=== PATIENT | male | born 1970 | race Caucasian/White ===

== ENCOUNTER 2016-11-26 15:57 | Inpatient (IN) | payer OTHER ==
[2016-11-26 17:07] VITALS: BMI 27.9
--- NOTE | 2016-11-26 17:43 | HP ---
CIWA Score - CIWA Score Nausea/Vomitin Muscle Tremors: 3 Anxiety: 3 Agitation: 3 Paroxysmal Sweats: 2 Orientation: 1-Uncertain about Date Tacttile Disturbances: 2-Mild Itch/Numbness/Burn Auditory Disturbances: 2-Mild Harshness/Frighten Visual Disturbances: 2-Mild Sensitivity Headache: 2-Mild CIWA-Ar Total Score: 23 Admission ROS BHS - HPI Chief Complaint: I NEED HELP TO STOP DRINKING ALCOHOL,COCAINE,MARIJUANA,WITHDRAWAL SYMPTOM,LAST DETOX 2015 ARMS AND ACRES METHADONE MAINTENANCE LAST MEDICATED 10/26/16 BIPOLAR DISORDER ASTHMA WEIGHT LOSS LONGEST PERIOD OF SOBRIETY 3 YEARS Allergies/Adverse Reactions: Allergies Allergy/AdvReac Type Severity Reaction Status Date / Time No Known Allergies Allergy Verified 11/26/16 17:35 History of Present Illness: THIS 46 YEARS OLD MALE WITH ALCOHOL,COCAINE,MARIJUANA DEPENDENCE,WITHDRAWAL SYMPTOM,MMTP 130 MGS/DAY,LAST MEDICATED TODAY FOR DETOX Exam Limitations: No Limitations - Ebola screening Have you traveled outside of the country in the last 21 days: No Have you had contact with anyone from an Ebola affected area: No Have you been sick,other than usual withdrawal symptoms: No - Review of Systems Constitutional: Loss of Appetite, Malaise, Night Sweats, Changes in sleep, Weakness, Unintentional Wgt. Loss EENT: reports: Nose Congestion Respiratory: reports: Other (ASTHMA) Cardiac: reports: Palpitations GI: reports: Diarrhea, Nausea, Vomiting, Abdominal cramping : reports: No Symptoms Reported Musculoskeletal: reports: No Symptoms Reported, Back Pain, Muscle Pain Integumentary: reports: Dryness Neuro: reports: Headache, Tremors Endocrine: reports: No Symptoms Reported Hematology: reports: No Symptoms Reported Psychiatric: reports: Judgement Intact, Mood/Affect Appropiate, Orientated x3 ( BIPOLAR DISORDER), Anxious Patient History - Patient Medical History Hx Asthma: Yes (ON ALBUTEROL INHALER) Hx Chronic Obstructive Pulmonary Disease (COPD): Yes (ON ALBUTEROL INHALER) Hx Cancer: No Hx Cardiac Disorders: No Hx Congestive Heart Failure: No Hx Hypertension: No Hx Hypercholesterolemia: No Hx Pacemaker: No HX Cerebrovascular Accident: No Hx Seizures: No Hx Dementia: No Hx Diabetes: No Hx Gastrointestinal Disorders: No Hx Liver Disease: Yes (Hepatitis C TREATED) Hx Genitourinary Disorders: No Hx Sexually Transmitted Disorders: No Hx Renal Disease (ESRD): No Hx Thyroid Disease: No Hx Human Immunodeficiency Virus (HIV): No (LAST 06/07 NEGATIVE) Hx Hepatitis C: Yes (TREATED) Hx Depression: Yes Hx Suicide Attempt: Yes (tried to cut his wrist.) Hx Bipolar Disorder: Yes (ON MED) Hx Schizophrenia: No Other Medical History: NO SUIDAL,NO HOMICIDAL - Patient Surgical History Past Surgical History: Yes Hx Orthopedic Surgery: Yes (L arm fx sx and skull fx sx in 2011) Other Surgical History: L knee sx in 2008 Anesthesia Reaction: No - PPD History Previous Implant?: Yes Documented Results: Negative w/o proof Implanted On Prior [facility] Admission?: Yes Date: 03/03/15 PPD to be Administered?: Yes - Smoking Cessation Smoking history: Current every day smoker Have you smoked in the past 12 months: Yes Aproximately how many cigarettes per day: 20 Hx Chewing Tobacco Use: No Initiated information on smoking cessation: Yes 'Breaking Loose' booklet given: 11/26/16 - Substance & Tx. History Hx Alcohol Use: Yes Hx Substance Use: Yes Substance Use Type: Alcohol, Cocaine, Marijuana Hx Substance Use Treatment: Yes (LAST DETOX ARMS AND ACRES IN 2016) - Substances Abused Alcohol Route: Oral Frequency: Daily Amount used: 10-12 malt liquor Age of first use: 11 Date of Last Use: 11/26/16 Cocaine Route: Inhalation Frequency: Daily Amount used: $20-40 Age of first use: 18 Date of Last Use: 11/25/16 Marijuana/Hashish Route: Smoking Frequency: Daily Amount used: 2-3 blunts Age of first use: 11 Date of Last Use: 11/26/16 Family Disease History - Family Disease History Family Disease History: Other: Father (ALCOHOL,) Admission Physical Exam BHS - Vital Signs Vital Signs: Vital Signs - 24 hr 11/26/16 17:05 Temperature 96.2 F L Pulse Rate 62 Respiratory 20 Rate Blood Pressure 102/69 - Physical General Appearance: Yes: Moderate Distress, Tremorous, Irritable, Sweating, Anxious HEENTM: Yes: Hearing grossly Normal, VENU, Pharynx Normal Respiratory: Yes: Lungs Clear, Normal Breath Sounds, No Respiratory Distress, Other (ASTHMA) Neck: Yes: Within Normal Limits, Supple, Trachea in good position Breast: Yes: Within Normal Limits Cardiology: Yes: Within Normal Limits, Regular Rhythm, Regular Rate, S1, S2 Abdominal: Yes: Within Normal Limits, Normal Bowel Sounds, Non Tender, Flat, Soft Genitourinary: Yes: Within Normal Limits Back: Yes: Muscle Spasm Musculoskeletal: Yes: Back pain, Muscle Pain Extremities: Yes: Normal Range of Motion, Tremors Neurological: Yes: quantitative analyst developer II-XII NML intact, Fully Oriented, Alert, Motor Strength 5/5 Integumentary: Yes: Dry Lymphatic: Yes: Within Normal Limits - Diagnostic (1) Alcohol dependence with uncomplicated withdrawal Status: Acute (2) Cocaine dependence Status: Acute Qualifiers: Substance use status: uncomplicated Qualified Code(s): F14.20 - Cocaine dependence, uncomplicated (3) Cannabis dependence Status: Acute (4) Depression Status: Chronic (5) Hepatitis C Status: Chronic Qualifiers: Viral hepatitis chronicity: chronic Hepatic coma status: without hepatic coma Qualified Code(s): B18.2 - Chronic viral hepatitis C (6) Methadone maintenance therapy patient Status: Chronic (7) Nicotine dependence Status: Acute Qualifiers: Nicotine product type: cigarettes Substance use status: uncomplicated Qualified Code(s): F17.210 - Nicotine dependence, cigarettes, uncomplicated (8) Post traumatic stress disorder (PTSD) Status: Chronic Cleared for Admission [facility] - Detox or Rehab [facility] Level of Care: Medically Managed Detox Regimen/Protocol: Librium [facility] Breath Alcohol Content Breath Alcohol Content: 0 Urine Drug Screen - Results Drug Screen Negative: No Urine Drug Screen Results: THC-Marijuana, RIMA-Cocaine, OPI-Opiates, MTD- Methadone
[2016-11-26] MEDS ORDERED: hydrOXYzine PAMOATE 50 MG CAPSULE (FP) PO PRN (17:56)
[2016-11-26] MEDS ORDERED: guaiFENesin/D-METHORPHAN HB 10 ML UNIT-DOSE CUPS PO PRN (17:56)
[2016-11-26] MEDS ORDERED: ACETAMINOPHEN 325 MG TABLET (FP) PO PRN (17:56)
[2016-11-26] MEDS ORDERED: MAGNESIUM CITRATE 300 ML BOTTLE PO PRN (17:56)
[2016-11-26] MEDS ORDERED: chlordiazePOXIDE HCL 25 MG CAPSULE PO PRN (17:56)
[2016-11-26] MEDS ORDERED: MENTHOL/PHENOL 1 EACH UD MM PRN (17:56)
[2016-11-26] MEDS ORDERED: P-EPHED 60MG/TRIPROLIDI 2.5MG TABLET PO PRN (17:56)
[2016-11-26] MEDS ORDERED: LOPERAMIDE HCL 2 MG CAPSULE PO PRN (17:56)
[2016-11-26] MEDS ORDERED: MAG HYDROX/AL HYDROX/SIMETH 30 ML UNIT-DOSE CUP PO PRN (17:56)
[2016-11-26] MEDS ORDERED: MAGNESIUM HYDROX 2400MG/30ML ORAL SUSPENSION 30 ML CUP PO PRN (17:56)
[2016-11-26] MEDS ORDERED: ALBUTEROL SO4 6.7 GM HFA INHALER IH PRN (17:59)
[2016-11-26] MEDS ORDERED: chlordiazePOXIDE HCL 25 MG CAPSULE PO ONE (18:30)
[2016-11-26 22:27] LABS: URINE APPEARANCE CLEAR; URINE BILIRUBIN NEGATIVE (NEGATIVE); URINE BLOOD NEGATIVE (NEGATIVE); URINE COLOR AMBER; URINE GLUCOSE (UA) NEGATIVE (NEGATIVE); URINE KETONE NEGATIVE (NEGATIVE); URINE NITRITE NEGATIVE (NEGATIVE); URINE UROBILINOGEN 2.0 E.U/dl E.U./dl (0.2-1.0)
[2016-11-26] MEDS: chlordiazePOXIDE HCL 25 MG CAPSULE PO SCH (22:33)
[2016-11-26] MEDS: THIAMINE HCL 100 MG TABLET (FP) PO SCH (22:33)
[2016-11-26] MEDS: diphenhydrAMINE HCL 50 MG CAPSULE PO PRN (22:34)
[2016-11-26] MEDS: NICOTINE 21 MG/24 HOURS TOPICAL PATCH TD SCH (22:35)
[2016-11-26] MEDS: NICOTINE POLACRILEX 2 MG GUM BC PRN (22:36)
[2016-11-26 22:42] LABS: URINE LEUK ESTERASE TRACE (NEGATIVE); URINE PROTEIN 1+ (NEGATIVE)
[2016-11-26 22:54] LABS: URINE MUCUS RARE; URINE RBC 1 /hpf (0-3); URINE WBC 1 /hpf (3-5)
[2016-11-27] MEDS: chlordiazePOXIDE HCL 25 MG CAPSULE PO SCH ×4 (05:58→22:14)
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
--- NOTE | 2016-11-27 09:19 | EKG ---
Test Reason : Blood Pressure : / mmHG Vent. Rate : 054 BPM Atrial Rate : 054 BPM P-R Int : 192 ms QRS Dur : 092 ms QT Int : 460 ms P-R-T Axes : 064 046 040 degrees QTc Int : 436 ms SINUS BRADYCARDIA INCOMPLETE RBBB Confirmed by TATE MEDEL MD ([id number]) on 11/27/2016 9:19:00 AM Referred By: Ar Parekh Confirmed By:TATE MEDEL MD
[2016-11-27 10:04] LABS: MCH 28.5 pg (25.7-33.7); MEAN CELL VOLUME 86.4 fl (80-96); MEAN PLT VOLUME 8.9 fl (7.5-11.1); PLATELET COUNT 196 K/MM3 (134-434); RDW 13.6 % (11.9-15.9); WHITE BLOOD COUNT 5.2 K/mm3 (4.0-10.0)
[2016-11-27 10:17] LABS: ALBUMIN 3.4 g/dl (3.4-5.0); ANION GAP 8 (8-16); CALCIUM 8.5 mg/dL (8.5-10.1); CO2 28 mmol/L (21-32); GLUCOSE,RANDOM 81 mg/dL (74-106); SGPT/ALT 41 U/L (12-78)
[2016-11-27 10:21] LABS: ALK PHOS 102 U/L (45-117); BILIRUBIN,TOTAL 0.8 mg/dL (0.2-1.0); COCKROFT - GAULT 119.78; CREATININE 0.9 mg/dL (0.7-1.3); SGOT/AST 43 U/L (15-37); TOT PROT 7.4 g/dl (6.4-8.2)
[2016-11-27] MEDS: PRENATAL VITAMINS W/ FOLIC ACID TABLET (FP) PO SCH (10:21)
[2016-11-27] MEDS: NICOTINE 21 MG/24 HOURS TOPICAL PATCH TD SCH (10:22)
[2016-11-27] MEDS: PARoxetine HCL 20 MG TABLET (FP) PO SCH (10:22)
--- NOTE | 2016-11-27 10:56 | PN ---
S CIWA - CIWA Score Nausea/Vomitin-No Nausea/No Vomiting Muscle Tremors: 4-Moderate,w/Arms Extend Anxiety: 4-Mod. Anxious/Guarded Agitation: 3 Paroxysmal Sweats: 3 Orientation: 0-Oriented Tacttile Disturbances: 0-None Auditory Disturbances: 0-None Visual Disturbances: 0-None Headache: 0-None Present CIWA-Ar Total Score: 14 BHS Progress Note (SOAP) Subjective: Anxiety,tremors,sweating,restless,interrupted sleep Objective: 11/27/16 10:53 Vital Signs - 8 hr 11/27/16 11/27/16 11/27/16 03:36 07:09 10:51 Temperature 96 F L 96 F L Pulse Rate 50 L 50 L Respiratory 18 18 20 Rate Blood Pressure 118/66 108/67 Laboratory Tests 11/26/16 11/27/16 11/27/16 22:04 07:00 07:00 WBC 5.2 D RBC 5.03 Hgb 14.3 Hct 43.4 MCV 86.4 MCHC 33.0 RDW 13.6 Plt Count 196 MPV 8.9 Sodium 140 Potassium 4.1 Chloride 104 Carbon Dioxide 28 Anion Gap 8 BUN 15 Creatinine 0.9 Creat Clearance w eGFR > 60 Random Glucose 81 D Calcium 8.5 Total Bilirubin 0.8 AST 43 H ALT 41 D Alkaline Phosphatase 102 D Total Protein 7.4 Albumin 3.4 Urine Color Nini Urine Appearance Clear Urine pH 5.0 Ur Specific [place] 1.026 Urine Protein 1+ H Urine Glucose (UA) Negative Urine Ketones Negative Urine Blood Negative Urine Nitrite Negative Urine Bilirubin Negative Urine Urobilinogen 2.0 e.u/dl Ur Leukocyte Esterase Trace H Urine RBC 1 Urine WBC 1 Urine Mucus Rare labs noted Assessment: 11/27/16 10:54 Withdrawal sx Plan: Continue detox
[2016-11-27] MEDS ORDERED: METHADONE HCL 10 MG TABLET PO SCH (11:00)
[2016-11-27 11:10] LABS: HIV 1 & 2 AB NEGATIVE; HIV 1 AGp24 NEGATIVE
[2016-11-27] MEDS ORDERED: METHADONE HCL 10 MG TABLET ONE (11:15)
[2016-11-27] MEDS ORDERED: METHADONE HCL 40 MG DISPERSABLE TABLET ONE (11:16)
[2016-11-27] MEDS: METHADONE 120 MG, METHADONE 10 MG PO SCH (11:19)
[2016-11-27] MEDS: IBUPROFEN 400 MG TABLET (FP) PO PRN (18:07)
[2016-11-27] MEDS: NICOTINE POLACRILEX 2 MG GUM BC PRN (18:08)
[2016-11-27] MEDS: risperiDONE 3 MG TABLET PO SCH (22:14)
[2016-11-27] MEDS: THIAMINE HCL 100 MG TABLET (FP) PO SCH (22:14)
[2016-11-28] MEDS ORDERED: METHADONE HCL 10 MG TABLET ONE (04:14)
[2016-11-28] MEDS ORDERED: METHADONE HCL 40 MG DISPERSABLE TABLET ONE (04:15)
[2016-11-28] MEDS: chlordiazePOXIDE HCL 25 MG CAPSULE PO SCH ×3 (05:28→17:40)
[2016-11-28] MEDS: METHADONE 120 MG, METHADONE 10 MG PO SCH (05:28)
[2016-11-28] MEDS: PRENATAL VITAMINS W/ FOLIC ACID TABLET (FP) PO SCH (10:25)
[2016-11-28] MEDS: PARoxetine HCL 20 MG TABLET (FP) PO SCH (10:25)
[2016-11-28] MEDS: NICOTINE 21 MG/24 HOURS TOPICAL PATCH TD SCH (10:26)
--- NOTE | 2016-11-28 10:46 | PN ---
S CIWA - CIWA Score Nausea/Vomitin-No Nausea/No Vomiting Muscle Tremors: 4-Moderate,w/Arms Extend Anxiety: 4-Mod. Anxious/Guarded Agitation: 3 Paroxysmal Sweats: 3 Orientation: 0-Oriented Tacttile Disturbances: 0-None Auditory Disturbances: 0-None Visual Disturbances: 0-None Headache: 0-None Present CIWA-Ar Total Score: 14 BHS Progress Note (SOAP) Subjective: Anxiety,tremors,sweating,interrupted sleep,restless Objective: 11/28/16 10:44 Vital Signs - 8 hr 11/28/16 11/28/16 11/28/16 03:30 06:42 09:43 Temperature 96.9 F L 97.7 F Pulse Rate 48 L 55 L Respiratory 18 16 18 Rate Blood Pressure 110/83 106/73 Laboratory Tests 11/26/16 11/27/16 11/27/16 22:04 07:00 07:00 WBC 5.2 D RBC 5.03 Hgb 14.3 Hct 43.4 MCV 86.4 MCHC 33.0 RDW 13.6 Plt Count 196 MPV 8.9 Sodium Potassium Chloride Carbon Dioxide Anion Gap BUN Creatinine Creat Clearance w eGFR Random Glucose Calcium Total Bilirubin AST ALT Alkaline Phosphatase Total Protein Albumin Urine Color Nini Urine Appearance Clear Urine pH 5.0 Ur Specific [place] 1.026 Urine Protein 1+ H Urine Glucose (UA) Negative Urine Ketones Negative Urine Blood Negative Urine Nitrite Negative Urine Bilirubin Negative Urine Urobilinogen 2.0 e.u/dl Ur Leukocyte Esterase Trace H Urine RBC 1 Urine WBC 1 Urine Mucus Rare RPR Titer HIV 1&2 Antibody Screen Negative HIV P24 Antigen Negative 11/27/16 11/27/16 07:00 07:00 WBC RBC Hgb Hct MCV MCHC RDW Plt Count MPV Sodium 140 Potassium 4.1 Chloride 104 Carbon Dioxide 28 Anion Gap 8 BUN 15 Creatinine 0.9 Creat Clearance w eGFR > 60 Random Glucose 81 D Calcium 8.5 Total Bilirubin 0.8 AST 43 H ALT 41 D Alkaline Phosphatase 102 D Total Protein 7.4 Albumin 3.4 Urine Color Urine Appearance Urine pH Ur Specific [place] Urine Protein Urine Glucose (UA) Urine Ketones Urine Blood Urine Nitrite Urine Bilirubin Urine Urobilinogen Ur Leukocyte Esterase Urine RBC Urine WBC Urine Mucus RPR Titer Nonreactive HIV 1&2 Antibody Screen HIV P24 Antigen labs noted Assessment: 11/28/16 10:45 Withdrawal sx. Plan: Continue detox
[2016-11-28] MEDS: IBUPROFEN 400 MG TABLET (FP) PO PRN (21:07)
[2016-11-28] MEDS: chlordiazePOXIDE 5 MG CAPSULE PO SCH (22:25)
[2016-11-28] MEDS: THIAMINE HCL 100 MG TABLET (FP) PO SCH (22:25)
[2016-11-28] MEDS: risperiDONE 3 MG TABLET PO SCH (22:25)
[2016-11-28] MEDS: diphenhydrAMINE HCL 50 MG CAPSULE PO PRN (22:25)
[2016-11-29] MEDS ORDERED: METHADONE HCL 10 MG TABLET ONE (01:44)
[2016-11-29] MEDS ORDERED: METHADONE HCL 40 MG DISPERSABLE TABLET ONE (01:45)
[2016-11-29] MEDS: chlordiazePOXIDE 5 MG CAPSULE PO SCH ×3 (05:56→17:03)
[2016-11-29] MEDS: METHADONE 120 MG, METHADONE 10 MG PO SCH (05:56)
[2016-11-29] MEDS: NICOTINE 21 MG/24 HOURS TOPICAL PATCH TD SCH (10:14)
[2016-11-29] MEDS: PARoxetine HCL 20 MG TABLET (FP) PO SCH (10:16)
[2016-11-29] MEDS: PRENATAL VITAMINS W/ FOLIC ACID TABLET (FP) PO SCH (10:16)
--- NOTE | 2016-11-29 12:43 | PN ---
BHS Progress Note (SOAP) Subjective: Sweating,interrupted sleep,restless Objective: 11/29/16 12:42 Vital Signs - 8 hr 11/29/16 11/29/16 06:45 09:30 Temperature 96.1 F L 96.3 F L Pulse Rate 60 62 Respiratory 18 18 Rate Blood Pressure 125/84 131/83 Laboratory Tests 11/26/16 11/27/16 11/27/16 22:04 07:00 07:00 WBC 5.2 D RBC 5.03 Hgb 14.3 Hct 43.4 MCV 86.4 MCHC 33.0 RDW 13.6 Plt Count 196 MPV 8.9 Sodium Potassium Chloride Carbon Dioxide Anion Gap BUN Creatinine Creat Clearance w eGFR Random Glucose Calcium Total Bilirubin AST ALT Alkaline Phosphatase Total Protein Albumin Urine Color Nini Urine Appearance Clear Urine pH 5.0 Ur Specific [place] 1.026 Urine Protein 1+ H Urine Glucose (UA) Negative Urine Ketones Negative Urine Blood Negative Urine Nitrite Negative Urine Bilirubin Negative Urine Urobilinogen 2.0 e.u/dl Ur Leukocyte Esterase Trace H Urine RBC 1 Urine WBC 1 Urine Mucus Rare RPR Titer HIV 1&2 Antibody Screen Negative HIV P24 Antigen Negative 11/27/16 11/27/16 07:00 07:00 WBC RBC Hgb Hct MCV MCHC RDW Plt Count MPV Sodium 140 Potassium 4.1 Chloride 104 Carbon Dioxide 28 Anion Gap 8 BUN 15 Creatinine 0.9 Creat Clearance w eGFR > 60 Random Glucose 81 D Calcium 8.5 Total Bilirubin 0.8 AST 43 H ALT 41 D Alkaline Phosphatase 102 D Total Protein 7.4 Albumin 3.4 Urine Color Urine Appearance Urine pH Ur Specific [place] Urine Protein Urine Glucose (UA) Urine Ketones Urine Blood Urine Nitrite Urine Bilirubin Urine Urobilinogen Ur Leukocyte Esterase Urine RBC Urine WBC Urine Mucus RPR Titer Nonreactive HIV 1&2 Antibody Screen HIV P24 Antigen labs noted Assessment: 11/29/16 12:42 Withdrawal sx. Plan: continue detox
[2016-11-29] MEDS: risperiDONE 3 MG TABLET PO SCH (22:07)
[2016-11-29] MEDS: IBUPROFEN 400 MG TABLET (FP) PO PRN (22:07)
[2016-11-29] MEDS: chlordiazePOXIDE HCL 10 MG CAPSULE PO SCH (22:07)
[2016-11-29] MEDS: diphenhydrAMINE HCL 50 MG CAPSULE PO PRN (22:07)
[2016-11-29] MEDS: THIAMINE HCL 100 MG TABLET (FP) PO SCH (22:07)
[2016-11-30] MEDS ORDERED: METHADONE HCL 40 MG DISPERSABLE TABLET ONE (03:27)
[2016-11-30] MEDS ORDERED: METHADONE HCL 10 MG TABLET ONE (03:27)
[2016-11-30] MEDS: IBUPROFEN 400 MG TABLET (FP) PO PRN (06:05)
[2016-11-30] MEDS: chlordiazePOXIDE HCL 10 MG CAPSULE PO SCH (06:05)
[2016-11-30] MEDS: METHADONE 120 MG, METHADONE 10 MG PO SCH (06:06)
[2016-11-30 07:01] VITALS: BP 129/72; PULSE 63; TEMP 96.9
--- NOTE | 2016-11-30 10:11 | DS ---
[facility] Detox Discharge Summary Admission Date: 11/26/16 Discharge Date: 11/30/16 - History Present History: Alcohol Dependence, Cocaine Dependence, MMTP Pertinent Past History: Hep C - Physical Exam Results Vital Signs: Vital Signs Temperature 96.9 F L 11/30/16 06:59 Pulse Rate 63 11/30/16 06:59 Respiratory Rate 18 11/30/16 06:59 Blood Pressure 129/72 11/30/16 06:59 O2 Sat by Pulse Oximetry (%) Pertinent Admission Physical Exam Findings: Withdrawal sx. Laboratory Last Values WBC 5.2 K/mm3 (4.0-10.0) D 11/27/16 07:00 RBC 5.03 M/mm3 (4.00-5.60) 11/27/16 07:00 Hgb 14.3 GM/dL (11.7-16.9) 11/27/16 07:00 Hct 43.4 % (35.4-49) 11/27/16 07:00 MCV 86.4 fl (80-96) 11/27/16 07:00 MCHC 33.0 g/dl (32.0-35.9) 11/27/16 07:00 RDW 13.6 % (11.9-15.9) 11/27/16 07:00 Plt Count 196 K/MM3 (134-434) 11/27/16 07:00 MPV 8.9 fl (7.5-11.1) 11/27/16 07:00 Sodium 140 mmol/L (136-145) 11/27/16 07:00 Potassium 4.1 mmol/L (3.5-5.1) 11/27/16 07:00 Chloride 104 mmol/L (98-107) 11/27/16 07:00 Carbon Dioxide 28 mmol/L (21-32) 11/27/16 07:00 Anion Gap 8 (8-16) 11/27/16 07:00 BUN 15 mg/dL (7-18) 11/27/16 07:00 Creatinine 0.9 mg/dL (0.7-1.3) 11/27/16 07:00 Creat Clearance w eGFR > 60 (>60) 11/27/16 07:00 Random Glucose 81 mg/dL (74-106) D 11/27/16 07:00 Calcium 8.5 mg/dL (8.5-10.1) 11/27/16 07:00 Total Bilirubin 0.8 mg/dL (0.2-1.0) 11/27/16 07:00 AST 43 U/L (15-37) H 11/27/16 07:00 ALT 41 U/L (12-78) D 11/27/16 07:00 Alkaline Phosphatase 102 U/L (45-117) D 11/27/16 07:00 Total Protein 7.4 g/dl (6.4-8.2) 11/27/16 07:00 Albumin 3.4 g/dl (3.4-5.0) 11/27/16 07:00 Urine Color Nini 11/26/16 22:04 Urine Appearance Clear 11/26/16 22:04 Urine pH 5.0 (5.0-8.0) 11/26/16 22:04 Ur Specific [place] 1.026 (1.001-1.035) 11/26/16 22:04 Urine Protein 1+ (NEGATIVE) H 11/26/16 22:04 Urine Glucose (UA) Negative (NEGATIVE) 11/26/16 22:04 Urine Ketones Negative (NEGATIVE) 11/26/16 22:04 Urine Blood Negative (NEGATIVE) 11/26/16 22:04 Urine Nitrite Negative (NEGATIVE) 11/26/16 22:04 Urine Bilirubin Negative (NEGATIVE) 11/26/16 22:04 Urine Urobilinogen 2.0 e.u/dl E.U./dl (0.2-1.0) 11/26/16 22:04 Ur Leukocyte Esterase Trace (NEGATIVE) H 11/26/16 22:04 Urine RBC 1 /hpf (0-3) 11/26/16 22:04 Urine WBC 1 /hpf (3-5) 11/26/16 22:04 Urine Mucus Rare 11/26/16 22:04 RPR Titer Nonreactive (NONREACTIVE) 11/27/16 07:00 HIV 1&2 Antibody Screen Negative 11/27/16 07:00 HIV P24 Antigen Negative 11/27/16 07:00 labs noted - Treatment Hospital Course: Detox Protocol Followed, Detoxed Safely, Responded well, Discharged Condition Good, Rehab Referral Accepted Patient has Accepted a Rehab Referral to: [facility] - Medication Discharge Medications: Ambulatory Orders Paroxetine HCl [Paxil] 20 mg PO DAILY #0 03/06/15 Albuterol Sulfate Inhaler - [Ventolin Hfa Inhaler -] 2 inh PO Q4H PRN 11/26/16 Clonazepam [Klonopin -] 2 mg PO BID 11/26/16 Risperidone [Risperdal -] 3 mg PO HS 11/26/16 Paroxetine HCl [Paxil -] 20 mg PO DAILY #30 tablet 11/27/16 Risperidone [Risperdal] 3 mg PO HS #30 tablet 11/27/16 - Diagnosis (1) Alcohol dependence with uncomplicated withdrawal Status: Acute (2) COPD (chronic obstructive pulmonary disease) Status: Acute (3) Cannabis dependence Status: Acute (4) Cocaine dependence Status: Acute Qualifiers: Substance use status: uncomplicated Qualified Code(s): F14.20 - Cocaine dependence, uncomplicated (5) Nicotine dependence Status: Acute Qualifiers: Nicotine product type: cigarettes Substance use status: uncomplicated Qualified Code(s): F17.210 - Nicotine dependence, cigarettes, uncomplicated (6) Opioid dependence on agonist therapy Status: Acute (7) Hepatitis C Status: Chronic Qualifiers: Viral hepatitis chronicity: chronic Hepatic coma status: without hepatic coma Qualified Code(s): B18.2 - Chronic viral hepatitis C (8) Bipolar disorder Status: Chronic (9) Post traumatic stress disorder (PTSD) Status: Chronic - AMA Did Patient Leave Against Medical Advice: No
== END 2016-11-30 09:48 | disposition home or self-care (01) | DRG 773 ==
LOC: YASAS 15:57 → Y3N 18:03
PROVIDERS: ADMIT Internal Medicine; ATTEND Internal Medicine
PROC: HZ2ZZZZ Detoxification Services for Substance Abuse Treatment (ICD-10-PCS; principal; 2016-11-30)
DX: F11.20 Opioid dependence, uncomplicated (principal); F10.230 Alcohol dependence with withdrawal, uncomplicated; F14.20 Cocaine dependence, uncomplicated; F12.20 Cannabis dependence, uncomplicated; F17.210 Nicotine dependence, cigarettes, uncomplicated; F43.10 Post-traumatic stress disorder, unspecified; F32.9 Major depressive disorder, single episode, unspecified; B18.2 Chronic viral hepatitis C; J44.9 Chronic obstructive pulmonary disease, unspecified; Z59.0 Homelessness
CPT/HCPCS: 36415; 80053; 81003; 81015; 85027; 86593; 87389; 93005; 93010

== ENCOUNTER 2017-06-29 11:42 | Inpatient (IN) | payer OTHER ==
[2017-06-29 12:50] VITALS: BMI 31.9
[2017-06-29] MEDS ORDERED: ACETAMINOPHEN 325 MG TABLET (FP) PO PRN (16:29)
[2017-06-29] MEDS ORDERED: LOPERAMIDE HCL 2 MG CAPSULE PO PRN (16:29)
[2017-06-29] MEDS ORDERED: MAGNESIUM HYDROX 2400MG/30ML ORAL SUSPENSION 30 ML CUP PO PRN (16:29)
[2017-06-29] MEDS ORDERED: guaiFENesin/D-METHORPHAN HB 10 ML UNIT-DOSE CUPS PO PRN (16:29)
[2017-06-29] MEDS ORDERED: NICOTINE POLACRILEX 2 MG GUM BC PRN (16:29)
[2017-06-29] MEDS ORDERED: chlordiazePOXIDE HCL 25 MG CAPSULE PO PRN (16:29)
[2017-06-29] MEDS ORDERED: MENTHOL/PHENOL 1 EACH UD MM PRN (16:29)
[2017-06-29] MEDS ORDERED: MAGNESIUM CITRATE 300 ML BOTTLE PO PRN (16:29)
[2017-06-29] MEDS ORDERED: IBUPROFEN 400 MG TABLET (FP) PO PRN (16:29)
[2017-06-29] MEDS ORDERED: P-EPHED 60MG/TRIPROLIDI 2.5MG TABLET PO PRN (16:29)
[2017-06-29] MEDS ORDERED: MAG HYDROX/AL HYDROX/SIMETH 30 ML UNIT-DOSE CUP PO PRN (16:29)
[2017-06-29] MEDS ORDERED: METHADONE HCL 40 MG DISPERSABLE TABLET PO SCH (16:30)
--- NOTE | 2017-06-29 16:32 | HP ---
CIWA Score - CIWA Score Nausea/Vomitin Muscle Tremors: 4-Moderate,w/Arms Extend Anxiety: 3 Agitation: 4-Moderately Restless Paroxysmal Sweats: 3 Orientation: 0-Oriented Tacttile Disturbances: 0-None Auditory Disturbances: 0-None Visual Disturbances: 0-None Headache: 2-Mild CIWA-Ar Total Score: 19 Admission ROS BHS - HPI Chief Complaint: alcohol withdrawal sx Allergies/Adverse Reactions: Allergies Allergy/AdvReac Type Severity Reaction Status Date / Time No Known Allergies Allergy Verified 06/29/17 13:54 History of Present Illness: 46 yo m with h/o opioid dependence on MMTP 150mg daily, LDM yesterday 150mg verified by nurse, has not been medicated today admitted for alcohol detoxification. smokes marijuana and uses cocaine, reprots [place] when he does nto drink PMHX hep c, nictoien depdnence, bipolar do, asthma, denies seizures or DTS, no suicidal ideation at this time Exam Limitations: No Limitations - Ebola screening Have you traveled outside of the country in the last 21 days: No Have you had contact with anyone from an Ebola affected area: No Have you been sick,other than usual withdrawal symptoms: No Do you have a fever: No - Review of Systems Constitutional: Diaphoresis, Changes in sleep, Weight Stable EENT: reports: No Symptoms Reported Respiratory: reports: No Symptoms reported Cardiac: reports: No Symptoms Reported GI: reports: Diarrhea, Nausea, Poor Appetite, Poor Fluid Intake, Vomiting, Indigestion, Abdominal cramping : reports: No Symptoms Reported Musculoskeletal: reports: No Symptoms Reported Integumentary: reports: Flushing, Sweating Neuro: reports: Headache, Numbness, Tingling, Tremors, Weakness Endocrine: reports: No Symptoms Reported Hematology: reports: No Symptoms Reported Psychiatric: reports: Judgement Intact, Mood/Affect Appropiate, Orientated x3, Anxious, Depressed Other Systems: Reviewed and Negative Patient History - Patient Medical History Hx Anemia: No Hx Asthma: Yes Hx Chronic Obstructive Pulmonary Disease (COPD): No Hx Cancer: No Hx Cardiac Disorders: No Hx Congestive Heart Failure: No Hx Hypertension: No Hx Hypercholesterolemia: No Hx Pacemaker: No HX Cerebrovascular Accident: No Hx Seizures: No Hx Dementia: No Hx Diabetes: No Hx Gastrointestinal Disorders: No Hx Liver Disease: Yes (Hepatitis C TREATED) Hx Genitourinary Disorders: No Hx Sexually Transmitted Disorders: No Hx Renal Disease (ESRD): No Hx Thyroid Disease: No Hx Human Immunodeficiency Virus (HIV): No (LAST 06/07 NEGATIVE) Hx Hepatitis C: Yes (TREATED) Hx Depression: No Hx Suicide Attempt: No Hx Bipolar Disorder: Yes (ON MED) Hx Schizophrenia: No - Patient Surgical History Past Surgical History: Yes Hx Orthopedic Surgery: Yes (L arm fx sx and skull fx sx in 2011) Other Surgical History: L knee sx in 2008 Anesthesia Reaction: No - PPD History Previous Implant?: Yes Documented Results: Negative w/proof Implanted On Prior [facility] Admission?: Yes Date: 03/03/15 Results: 0mm PPD to be Administered?: Yes - Reproductive History Patient is a Female of Child Bearing Age (11 -55 yrs old): No Patient : No - Smoking Cessation Smoking history: Current every day smoker Have you smoked in the past 12 months: Yes Aproximately how many cigarettes per day: 10 Hx Chewing Tobacco Use: No Initiated information on smoking cessation: Yes 'Breaking Loose' booklet given: 06/29/17 - Substance & Tx. History Hx Alcohol Use: Yes Hx Substance Use: Yes Substance Use Type: Alcohol, Heroin, Opiates, Prescribed Hx Substance Use Treatment: Yes (MMTP, dtox and rehab [facility]) - Substances Abused Alcohol Route: Oral Frequency: Daily Amount used: beer(7-25 oz cans) Age of first use: 11 Date of Last Use: 06/29/17 Cocaine Route: Smoking Frequency: Daily Amount used: $10 Age of first use: 18 Date of Last Use: 06/28/17 Marijuana/Hashish Route: Smoking Frequency: Daily Amount used: $10 Age of first use: 11 Date of Last Use: 06/28/17 Family Disease History - Family Disease History Family Disease History: Other: Father (ALCOHOL,) Admission Physical Exam BHS - Vital Signs Vital Signs: Vital Signs - 24 hr 06/29/17 12:48 Temperature 96.8 F L Pulse Rate 80 Respiratory 18 Rate Blood Pressure 150/90 - Physical General Appearance: Yes: Nourished, Appropriately Dressed, Disheveled, Mild Distress, Tremorous, Irritable, Sweating, Anxious HEENTM: Yes: Within Normal Limits, EOMI, Hearing grossly Normal, Normal ENT Inspection, Normocephalic, Normal Voice, VENU, Pharynx Normal Respiratory: Yes: Within Normal Limits, Chest Non-Tender, Lungs Clear, Normal Breath Sounds, No Respiratory Distress, No Accessory Muscle Use Neck: Yes: Within Normal Limits, No masses,lesions,Nodules, Supple, Trachea in good position Breast: Yes: Breast Exam Deferred Cardiology: Yes: Within Normal Limits, Regular Rhythm, Regular Rate, S1, S2 Abdominal: Yes: Normal Bowel Sounds, Non Tender, Soft, Increased Bowel Sounds, Protuberent Genitourinary: Yes: Within Normal Limits Back: Yes: Within Normal Limits, Normal Inspection Musculoskeletal: Yes: Within Normal Limits, full range of Motion, Gait Steady, Pelvis Stable Extremities: Yes: Normal Capillary Refill, Normal Range of Motion, Non-Tender, Tremors Neurological: Yes: grain broker II-XII NML intact, Fully Oriented, Alert, Motor Strength 5/5, Normal Response, Depressed Affect Integumentary: Yes: Normal Color, Warm, Diaphoresis, Moist Lymphatic: Yes: Within Normal Limits - Addiitonal Findings: withdrawal sx present - Diagnostic (1) Alcohol dependence with uncomplicated withdrawal Current Visit: No Status: Acute (2) COPD (chronic obstructive pulmonary disease) Current Visit: No Status: Acute (3) Cannabis dependence Current Visit: No Status: Acute (4) Cocaine dependence Current Visit: No Status: Acute Qualifiers: Substance use status: uncomplicated Qualified Code(s): F14.20 - Cocaine dependence, uncomplicated; F14.20 - Cocaine dependence, uncomplicated; F14.20 - Cocaine dependence, uncomplicated (5) Nicotine dependence Current Visit: No Status: Acute Qualifiers: Nicotine product type: cigarettes Substance use status: uncomplicated Qualified Code(s): F17.210 - Nicotine dependence, cigarettes, uncomplicated; F17.210 - Nicotine dependence, cigarettes, uncomplicated (6) Bipolar disorder Current Visit: No Status: Chronic (7) Hepatitis C Current Visit: No Status: Chronic Qualifiers: Viral hepatitis chronicity: chronic Hepatic coma status: without hepatic coma Qualified Code(s): B18.2 - Chronic viral hepatitis C; B18.2 - Chronic viral hepatitis C; B18.2 - Chronic viral hepatitis C; B18.2 - Chronic viral hepatitis C Cleared for Admission BHS - Detox or Rehab [facility] Level of Care: Medically Managed Detox Regimen/Protocol: Librium S Breath Alcohol Content Breath Alcohol Content: 0.023 Urine Drug Screen - Results Drug Screen Negative: No Urine Drug Screen Results: THC-Marijuana, RIMA-Cocaine, MTD-Methadone
[2017-06-29] MEDS ORDERED: chlordiazePOXIDE HCL 25 MG CAPSULE PO ONE (17:00)
[2017-06-29] MEDS ORDERED: METHADONE 120 MG, METHADONE 30 MG PO ONE (17:30)
[2017-06-29] MEDS ORDERED: METHADONE HCL 10 MG TABLET ONE (18:10)
[2017-06-29] MEDS ORDERED: METHADONE HCL 40 MG DISPERSABLE TABLET ONE (18:12)
[2017-06-29] MEDS: NICOTINE 14 MG/24 HOURS TOPICAL PATCH TD SCH (18:22)
[2017-06-29] MEDS: ALBUTEROL SO4 18 GM HFA INHALER IH PRN (18:47)
--- NOTE | 2017-06-29 19:14 | EKG ---
Test Reason : Blood Pressure : / mmHG Vent. Rate : 059 BPM Atrial Rate : 059 BPM P-R Int : 186 ms QRS Dur : 082 ms QT Int : 450 ms P-R-T Axes : 064 026 027 degrees QTc Int : 445 ms SINUS BRADYCARDIA RSR' V1 POSSIBLE LEFT ATRIAL ENLARGEMENT BORDERLINE ECG WHEN COMPARED WITH ECG OF 26-NOV-2016 17:50, NO SIGNIFICANT CHANGE WAS FOUND Confirmed by FABRICIO SHAH MD ([id number]) on 06/29/2017 7:14:31 PM Referred By: BRYAN BURNETT Confirmed By:FABRICIO SHAH MD
[2017-06-29] MEDS: THIAMINE HCL 100 MG TABLET (FP) PO SCH (22:33)
[2017-06-29] MEDS: chlordiazePOXIDE HCL 25 MG CAPSULE PO SCH (22:33)
[2017-06-29] MEDS: hydrOXYzine PAMOATE 50 MG CAPSULE (FP) PO PRN (22:35)
[2017-06-30] MEDS ORDERED: METHADONE HCL 10 MG TABLET ONE (05:14)
[2017-06-30] MEDS ORDERED: METHADONE HCL 40 MG DISPERSABLE TABLET ONE (05:15)
[2017-06-30] MEDS: chlordiazePOXIDE HCL 25 MG CAPSULE PO SCH ×4 (05:30→22:28)
[2017-06-30] MEDS: METHADONE 120 MG, METHADONE 30 MG PO SCH (05:30)
[2017-06-30 10:14] LABS: MCH 30.4 pg (25.7-33.7); MCHC 33.4 g/dl (32.0-35.9); MEAN CELL VOLUME 91.1 fl (80-96); MEAN PLT VOLUME 10.4 fl (7.5-11.1); PLATELET COUNT 172 K/MM3 (134-434); RDW 13.2 % (11.9-15.9); WHITE BLOOD COUNT 7.3 K/mm3 (4.0-10.0)
[2017-06-30] MEDS: PRENATAL VITAMINS W/ FOLIC ACID TABLET (FP) PO SCH (10:25)
[2017-06-30] MEDS: NICOTINE 14 MG/24 HOURS TOPICAL PATCH TD SCH (10:26)
[2017-06-30 10:37] LABS: ALBUMIN 3.6 g/dl (3.4-5.0); ALK PHOS 143 U/L (45-117); ANION GAP 8 (8-16); BILIRUBIN,TOTAL 0.4 mg/dL (0.2-1.0); CALCIUM 8.3 mg/dL (8.5-10.1); CO2 27 mmol/L (21-32); CREATININE 0.9 mg/dL (0.7-1.3); GLUCOSE,RANDOM 120 mg/dL (74-106); SGOT/AST 157 U/L (15-37); SGPT/ALT 111 U/L (12-78); TOT PROT 7.7 g/dl (6.4-8.2)
[2017-06-30] MEDS ORDERED: FLU VACCINE QUAD 60 MCG/0.5 ML (MDV 17-18) IM ONE (12:00)
--- NOTE | 2017-06-30 12:28 | PN ---
[facility] CIWA - CIWA Score Nausea/Vomitin-No Nausea/No Vomiting Muscle Tremors: 4-Moderate,w/Arms Extend Anxiety: 4-Mod. Anxious/Guarded Agitation: 4-Moderately Restless Paroxysmal Sweats: 1-Minimal Palms Moist Orientation: 0-Oriented Tacttile Disturbances: 3-Moderate Itch/Numb/Burn Auditory Disturbances: 0-None Visual Disturbances: 0-None Headache: 0-None Present CIWA-Ar Total Score: 16 BHS Progress Note (SOAP) Subjective: ANXIETY,TREMORS, HEADACHE,SWEATS. Objective: 06/30/17 12:27 Vital Signs 06/30/17 09:24 Temperature 96.4 F L Pulse Rate 91 H Respiratory 20 Rate Blood Pressure 138/93 Laboratory Last Values WBC 7.3 K/mm3 (4.0-10.0) D 06/30/17 06:00 RBC 5.18 M/mm3 (4.00-5.60) 06/30/17 06:00 Hgb 15.7 GM/dL (11.7-16.9) 06/30/17 06:00 Hct 47.1 % (35.4-49) 06/30/17 06:00 MCV 91.1 fl (80-96) 06/30/17 06:00 MCH 30.4 pg (25.7-33.7) 06/30/17 06:00 MCHC 33.4 g/dl (32.0-35.9) 06/30/17 06:00 RDW 13.2 % (11.9-15.9) 06/30/17 06:00 Plt Count 172 K/MM3 (134-434) 06/30/17 06:00 MPV 10.4 fl (7.5-11.1) D 06/30/17 06:00 Sodium 139 mmol/L (136-145) 06/30/17 06:00 Potassium 4.3 mmol/L (3.5-5.1) 06/30/17 06:00 Chloride 104 mmol/L (98-107) 06/30/17 06:00 Carbon Dioxide 27 mmol/L (21-32) 06/30/17 06:00 Anion Gap 8 (8-16) 06/30/17 06:00 BUN 19 mg/dL (7-18) H D 06/30/17 06:00 Creatinine 0.9 mg/dL (0.7-1.3) 06/30/17 06:00 Creat Clearance w eGFR > 60 (>60) 06/30/17 06:00 Random Glucose 120 mg/dL (74-106) H D 06/30/17 06:00 Calcium 8.3 mg/dL (8.5-10.1) L 06/30/17 06:00 Total Bilirubin 0.4 mg/dL (0.2-1.0) D 06/30/17 06:00 AST 157 U/L (15-37) H D 06/30/17 06:00 ALT 111 U/L (12-78) H D 06/30/17 06:00 Alkaline Phosphatase 143 U/L (45-117) H D 06/30/17 06:00 Total Protein 7.7 g/dl (6.4-8.2) 06/30/17 06:00 Albumin 3.6 g/dl (3.4-5.0) 06/30/17 06:00 Assessment: 06/30/17 12:28 WITHDRAWAL SX Plan: CONTINUE DETOX
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
[2017-06-30 13:44] LABS: HIV 1 & 2 AB NEGATIVE; HIV 1 AGp24 NEGATIVE
[2017-06-30] MEDS: PARoxetine HCL 20 MG TABLET (FP) PO SCH (14:50)
[2017-06-30] MEDS: risperiDONE 3 MG TABLET PO SCH (22:27)
[2017-06-30] MEDS: THIAMINE HCL 100 MG TABLET (FP) PO SCH (22:27)
[2017-06-30] MEDS: hydrOXYzine PAMOATE 50 MG CAPSULE (FP) PO PRN (22:30)
[2017-07-01] MEDS ORDERED: METHADONE HCL 10 MG TABLET ONE (04:46)
[2017-07-01] MEDS ORDERED: METHADONE HCL 40 MG DISPERSABLE TABLET ONE (04:47)
[2017-07-01] MEDS: METHADONE 120 MG, METHADONE 30 MG PO SCH (05:14)
[2017-07-01] MEDS: chlordiazePOXIDE HCL 25 MG CAPSULE PO SCH ×3 (05:14→17:20)
[2017-07-01] MEDS: NICOTINE 14 MG/24 HOURS TOPICAL PATCH TD SCH (10:36)
[2017-07-01] MEDS: PRENATAL VITAMINS W/ FOLIC ACID TABLET (FP) PO SCH (10:36)
[2017-07-01] MEDS: PARoxetine HCL 20 MG TABLET (FP) PO SCH (10:36)
--- NOTE | 2017-07-01 13:29 | PN ---
[facility] CIWA - CIWA Score Nausea/Vomitin-No Nausea/No Vomiting Muscle Tremors: 4-Moderate,w/Arms Extend Anxiety: 4-Mod. Anxious/Guarded Agitation: 4-Moderately Restless Paroxysmal Sweats: 1-Minimal Palms Moist Orientation: 0-Oriented Tacttile Disturbances: 3-Moderate Itch/Numb/Burn Auditory Disturbances: 0-None Visual Disturbances: 0-None Headache: 0-None Present CIWA-Ar Total Score: 16 BHS Progress Note (SOAP) Subjective: ANXIETY,SWEATS,TREMORS,FATIGUE. Objective: 07/01/17 13:28 Vital Signs Temperature 97.9 F 07/01/17 13:05 Pulse Rate 73 07/01/17 13:05 Respiratory Rate 18 07/01/17 13:05 Blood Pressure 119/86 07/01/17 13:05 O2 Sat by Pulse Oximetry (%) Laboratory Last Values WBC 7.3 K/mm3 (4.0-10.0) D 06/30/17 06:00 RBC 5.18 M/mm3 (4.00-5.60) 06/30/17 06:00 Hgb 15.7 GM/dL (11.7-16.9) 06/30/17 06:00 Hct 47.1 % (35.4-49) 06/30/17 06:00 MCV 91.1 fl (80-96) 06/30/17 06:00 MCH 30.4 pg (25.7-33.7) 06/30/17 06:00 MCHC 33.4 g/dl (32.0-35.9) 06/30/17 06:00 RDW 13.2 % (11.9-15.9) 06/30/17 06:00 Plt Count 172 K/MM3 (134-434) 06/30/17 06:00 MPV 10.4 fl (7.5-11.1) D 06/30/17 06:00 Sodium 139 mmol/L (136-145) 06/30/17 06:00 Potassium 4.3 mmol/L (3.5-5.1) 06/30/17 06:00 Chloride 104 mmol/L (98-107) 06/30/17 06:00 Carbon Dioxide 27 mmol/L (21-32) 06/30/17 06:00 Anion Gap 8 (8-16) 06/30/17 06:00 BUN 19 mg/dL (7-18) H D 06/30/17 06:00 Creatinine 0.9 mg/dL (0.7-1.3) 06/30/17 06:00 Creat Clearance w eGFR > 60 (>60) 06/30/17 06:00 Random Glucose 120 mg/dL (74-106) H D 06/30/17 06:00 Calcium 8.3 mg/dL (8.5-10.1) L 06/30/17 06:00 Total Bilirubin 0.4 mg/dL (0.2-1.0) D 06/30/17 06:00 AST 157 U/L (15-37) H D 06/30/17 06:00 ALT 111 U/L (12-78) H D 06/30/17 06:00 Alkaline Phosphatase 143 U/L (45-117) H D 06/30/17 06:00 Total Protein 7.7 g/dl (6.4-8.2) 06/30/17 06:00 Albumin 3.6 g/dl (3.4-5.0) 06/30/17 06:00 RPR Titer Nonreactive (NONREACTIVE) 06/30/17 06:00 HIV 1&2 Antibody Screen Negative 06/29/17 14:55 HIV P24 Antigen Negative 06/29/17 14:55 Assessment: 07/01/17 13:28 WITHDRAWAL SX Plan: CONTINUE DETOX
[2017-07-01] MEDS: ALBUTEROL SO4 18 GM HFA INHALER IH PRN (18:32)
[2017-07-01 18:50] LABS: URINE APPEARANCE CLEAR; URINE BILIRUBIN NEGATIVE (NEGATIVE); URINE BLOOD NEGATIVE (NEGATIVE); URINE COLOR LTYELLOW; URINE GLUCOSE (UA) NEGATIVE (NEGATIVE); URINE KETONE NEGATIVE (NEGATIVE); URINE NITRITE NEGATIVE (NEGATIVE); URINE PROTEIN NEGATIVE (NEGATIVE); URINE UROBILINOGEN NEGATIVE mg/dL (0.2-1.0)
[2017-07-01 21:11] LABS: URINE LEUK ESTERASE Negative (NEGATIVE)
[2017-07-01] MEDS: THIAMINE HCL 100 MG TABLET (FP) PO SCH (22:17)
[2017-07-01] MEDS: risperiDONE 3 MG TABLET PO SCH (22:17)
[2017-07-01] MEDS: chlordiazePOXIDE 5 MG CAPSULE PO SCH (22:17)
[2017-07-01] MEDS: hydrOXYzine PAMOATE 50 MG CAPSULE (FP) PO PRN (22:19)
[2017-07-02] MEDS ORDERED: METHADONE HCL 10 MG TABLET ONE (03:23)
[2017-07-02] MEDS ORDERED: METHADONE HCL 40 MG DISPERSABLE TABLET ONE (03:23)
[2017-07-02] MEDS: chlordiazePOXIDE 5 MG CAPSULE PO SCH ×3 (05:10→17:15)
[2017-07-02] MEDS: METHADONE 120 MG, METHADONE 30 MG PO SCH (05:10)
[2017-07-02] MEDS: PRENATAL VITAMINS W/ FOLIC ACID TABLET (FP) PO SCH (10:11)
[2017-07-02] MEDS: PARoxetine HCL 20 MG TABLET (FP) PO SCH (10:12)
[2017-07-02] MEDS: NICOTINE 14 MG/24 HOURS TOPICAL PATCH TD SCH (10:12)
--- NOTE | 2017-07-02 11:34 | PN ---
BHS Progress Note (SOAP) Subjective: FATIGUE,LSIGHT TREMORS,HEADACHE,INTERMITTENT SLEEP. Objective: 07/02/17 11:34 Vital Signs Temperature 97.5 F L 07/02/17 09:22 Pulse Rate 88 07/02/17 09:22 Respiratory Rate 18 07/02/17 09:22 Blood Pressure 140/89 07/02/17 09:22 O2 Sat by Pulse Oximetry (%) Laboratory Last Values WBC 7.3 K/mm3 (4.0-10.0) D 06/30/17 06:00 RBC 5.18 M/mm3 (4.00-5.60) 06/30/17 06:00 Hgb 15.7 GM/dL (11.7-16.9) 06/30/17 06:00 Hct 47.1 % (35.4-49) 06/30/17 06:00 MCV 91.1 fl (80-96) 06/30/17 06:00 MCH 30.4 pg (25.7-33.7) 06/30/17 06:00 MCHC 33.4 g/dl (32.0-35.9) 06/30/17 06:00 RDW 13.2 % (11.9-15.9) 06/30/17 06:00 Plt Count 172 K/MM3 (134-434) 06/30/17 06:00 MPV 10.4 fl (7.5-11.1) D 06/30/17 06:00 Sodium 139 mmol/L (136-145) 06/30/17 06:00 Potassium 4.3 mmol/L (3.5-5.1) 06/30/17 06:00 Chloride 104 mmol/L (98-107) 06/30/17 06:00 Carbon Dioxide 27 mmol/L (21-32) 06/30/17 06:00 Anion Gap 8 (8-16) 06/30/17 06:00 BUN 19 mg/dL (7-18) H D 06/30/17 06:00 Creatinine 0.9 mg/dL (0.7-1.3) 06/30/17 06:00 Creat Clearance w eGFR > 60 (>60) 06/30/17 06:00 Random Glucose 120 mg/dL (74-106) H D 06/30/17 06:00 Calcium 8.3 mg/dL (8.5-10.1) L 06/30/17 06:00 Total Bilirubin 0.4 mg/dL (0.2-1.0) D 06/30/17 06:00 AST 157 U/L (15-37) H D 06/30/17 06:00 ALT 111 U/L (12-78) H D 06/30/17 06:00 Alkaline Phosphatase 143 U/L (45-117) H D 06/30/17 06:00 Total Protein 7.7 g/dl (6.4-8.2) 06/30/17 06:00 Albumin 3.6 g/dl (3.4-5.0) 06/30/17 06:00 Urine Color Ltyellow 07/01/17 18:33 Urine Appearance Clear 07/01/17 18:33 Urine pH 5.0 (5.0-8.0) 07/01/17 18:33 Ur Specific [place] 1.011 (1.001-1.035) 07/01/17 18:33 Urine Protein Negative (NEGATIVE) 07/01/17 18:33 Urine Glucose (UA) Negative (NEGATIVE) 07/01/17 18:33 Urine Ketones Negative (NEGATIVE) 07/01/17 18:33 Urine Blood Negative (NEGATIVE) 07/01/17 18:33 Urine Nitrite Negative (NEGATIVE) 07/01/17 18:33 Urine Bilirubin Negative (NEGATIVE) 07/01/17 18:33 Urine Urobilinogen Negative mg/dL (0.2-1.0) 07/01/17 18:33 Ur Leukocyte Esterase Negative (NEGATIVE) 07/01/17 18:33 RPR Titer Nonreactive (NONREACTIVE) 06/30/17 06:00 HIV 1&2 Antibody Screen Negative 06/29/17 14:55 HIV P24 Antigen Negative 06/29/17 14:55 Assessment: 07/02/17 11:34 WITHDRAWAL SX Plan: CONTINUE DETOX
[2017-07-02] MEDS: risperiDONE 3 MG TABLET PO SCH (22:28)
[2017-07-02] MEDS: chlordiazePOXIDE HCL 10 MG CAPSULE PO SCH (22:28)
[2017-07-02] MEDS: THIAMINE HCL 100 MG TABLET (FP) PO SCH (22:28)
[2017-07-02] MEDS: hydrOXYzine PAMOATE 50 MG CAPSULE (FP) PO PRN (22:29)
[2017-07-03] MEDS: chlordiazePOXIDE HCL 10 MG CAPSULE PO SCH ×2 (05:27→10:05)
[2017-07-03] MEDS ORDERED: METHADONE HCL 10 MG TABLET ONE (05:29)
[2017-07-03] MEDS ORDERED: METHADONE HCL 40 MG DISPERSABLE TABLET ONE (05:30)
[2017-07-03] MEDS: METHADONE 120 MG, METHADONE 30 MG PO SCH (05:30)
[2017-07-03] MEDS: PARoxetine HCL 20 MG TABLET (FP) PO SCH (10:04)
[2017-07-03] MEDS: NICOTINE 14 MG/24 HOURS TOPICAL PATCH TD SCH (10:04)
[2017-07-03] MEDS: PRENATAL VITAMINS W/ FOLIC ACID TABLET (FP) PO SCH (10:04)
[2017-07-03 10:48] VITALS: BP 135/95; PULSE 104; TEMP 95.9
--- NOTE | 2017-07-03 18:15 | DS ---
[facility] Detox Discharge Summary Admission Date: 06/29/17 Discharge Date: 07/03/17 - History Present History: Alcohol Dependence, Cannabis Dependence, Cocaine Dependence, Opioid Dependence, Sedative Dependence, MMTP Additional Comments: PATIENT RETURNING TO [facility]MTP [facility] ([place] FOR AFTERCARE. PATIENT ALSO ADVIOSED TO CONSIDER LOCAL 12-STEP / NA / AA OUTPATIENT SUPPORT GROUP MEETINGS FOR AFTERCARE. PATIENT WAS DISCHARGED FROM DETOX UNIT IN STABLE MEDICAL CONDITION. Pertinent Past History: Asthma, PTSD, MMTP, Bipolar Disorder,Hep C (Treated), Nicotine Dependence. - Physical Exam Results Vital Signs: Vital Signs Temperature 95.9 F L 07/03/17 10:47 Pulse Rate 104 H 07/03/17 10:47 Respiratory Rate 18 07/03/17 10:47 Blood Pressure 135/95 07/03/17 10:47 O2 Sat by Pulse Oximetry (%) Pertinent Admission Physical Exam Findings: WITHDRAWAL SYMPTOMS. Laboratory Tests 06/29/17 06/30/17 06/30/17 14:55 06:00 06:00 WBC 7.3 D RBC 5.18 Hgb 15.7 Hct 47.1 MCV 91.1 MCH 30.4 MCHC 33.4 RDW 13.2 Plt Count 172 MPV 10.4 D Sodium 139 Potassium 4.3 Chloride 104 Carbon Dioxide 27 Anion Gap 8 BUN 19 H D Creatinine 0.9 Creat Clearance w eGFR > 60 Random Glucose 120 H D Calcium 8.3 L Total Bilirubin 0.4 D AST 157 H D ALT 111 H D Alkaline Phosphatase 143 H D Total Protein 7.7 Albumin 3.6 Urine Color Urine Appearance Urine pH Ur Specific [place] Urine Protein Urine Glucose (UA) Urine Ketones Urine Blood Urine Nitrite Urine Bilirubin Urine Urobilinogen Ur Leukocyte Esterase RPR Titer HIV 1&2 Antibody Screen Negative HIV P24 Antigen Negative 06/30/17 07/01/17 06:00 18:33 WBC RBC Hgb Hct MCV MCH MCHC RDW Plt Count MPV Sodium Potassium Chloride Carbon Dioxide Anion Gap BUN Creatinine Creat Clearance w eGFR Random Glucose Calcium Total Bilirubin AST ALT Alkaline Phosphatase Total Protein Albumin Urine Color Ltyellow Urine Appearance Clear Urine pH 5.0 Ur Specific [place] 1.011 Urine Protein Negative Urine Glucose (UA) Negative Urine Ketones Negative Urine Blood Negative Urine Nitrite Negative Urine Bilirubin Negative Urine Urobilinogen Negative Ur Leukocyte Esterase Negative RPR Titer Nonreactive HIV 1&2 Antibody Screen HIV P24 Antigen LABS NOTED. - Treatment Hospital Course: Detox Protocol Followed, Detoxed Safely, Discharged Condition Good Patient has Accepted a Rehab Referral to: NO. PT RETURNING TO [facility] FOR AFTERCARE. - Medication Discharge Medications: Ambulatory Orders Paroxetine HCl [Paxil] 20 mg PO DAILY #0 03/06/15 Risperidone [Risperdal] 3 mg PO HS #30 tablet 11/27/16 Paroxetine HCl [Paxil -] 20 mg PO DAILY #30 tablet 06/30/17 Risperidone [Risperdal] 3 mg PO HS #30 tablet 06/30/17 Albuterol Sulfate Inhaler - [Ventolin Hfa Inhaler -] 2 inh PO Q4H PRN #1 inhaler 07/03/17 - Diagnosis (1) Alcohol dependence with uncomplicated withdrawal Status: Acute (2) Cannabis dependence Status: Acute (3) Cocaine dependence Status: Acute Qualifiers: Substance use status: uncomplicated Qualified Code(s): F14.20 - Cocaine dependence, uncomplicated (4) Nicotine dependence Status: Acute Qualifiers: Nicotine product type: cigarettes Substance use status: uncomplicated Qualified Code(s): F17.210 - Nicotine dependence, cigarettes, uncomplicated (5) Opioid dependence on agonist therapy Status: Acute (6) Bipolar disorder Status: Chronic Qualifiers: Active/Remission status: remission status unspecified Qualified Code(s): F31.9 - Bipolar disorder, unspecified (7) Hepatitis C Status: Chronic Qualifiers: Viral hepatitis chronicity: chronic Hepatic coma status: without hepatic coma Qualified Code(s): B18.2 - Chronic viral hepatitis C (8) Methadone maintenance therapy patient Status: Chronic (9) Post traumatic stress disorder (PTSD) Status: Chronic - AMA Did Patient Leave Against Medical Advice: No
== END 2017-07-03 11:21 | disposition home or self-care (01) | DRG 773 ==
LOC: YASAS 11:42 → Y3N 15:32
PROVIDERS: ADMIT Internal Medicine; ATTEND Internal Medicine
PROC: HZ2ZZZZ Detoxification Services for Substance Abuse Treatment (ICD-10-PCS; principal; 2017-06-29)
DX: F11.20 Opioid dependence, uncomplicated (principal); F10.230 Alcohol dependence with withdrawal, uncomplicated; F14.20 Cocaine dependence, uncomplicated; F12.20 Cannabis dependence, uncomplicated; F43.10 Post-traumatic stress disorder, unspecified; F31.9 Bipolar disorder, unspecified; B18.2 Chronic viral hepatitis C; J44.9 Chronic obstructive pulmonary disease, unspecified
CPT/HCPCS: 36415; 80053; 81003; 85027; 86593; 87389; 90688; 93005; 93010; G0008